=== PATIENT | male | born 1980 | race Caucasian/White ===

== ENCOUNTER 2019-11-27 19:34 | Emergency (ER) | payer BC ==
[~2019-11-27] VITALS: Ht 170.2 cm; Wt 91.0 kg
[2019-11-27 19:35] VITALS: BP 163/83
--- NOTE | 2019-11-27 19:57 | PHYS DOC ---
Adult General Chief Complaint Chief Complaint: OVERDOSE HPI HPI Patient is a 39-year-old male who presents after accidentally overdose on drugs. EMS reports that call went out for cardiac arrest and when they arrived, patient was with agonal respirations and was receiving CPR. EMS indicates that they had given intranasal Narcan 2 mg per nostril and patient came around and has been alert and oriented since. EMS states the patient did not want to come to the emergency room but they convinced him. Upon arrival, patient stating that he wants to leave AGAINST MEDICAL ADVICE. Patient has demonstrated that he is oriented 3. Patient denies any suicidal or homicidal ideations. Patient states that he thinks that the drug intake and was possibly laced with fentanyl or carfentanyl.[] Review of Systems Review of Systems Constitutional: Denies fever or chills [] Respiratory: Denies cough or shortness of breath [] Cardiovascular: No additional information not addressed in HPI [] GI: Denies abdominal pain, nausea, vomiting or diarrhea [] Integument: Denies rash or skin lesions [] Neurologic: Denies headache, focal weakness or sensory changes [] Allergies Allergies Allergies Coded Allergies Type Severity Reaction Last Updated Verified No Known Drug Allergies 11/27/19 No Physical Exam Physical Exam Constitutional: Well developed, well nourished, no acute distress, non-toxic appearance. [] Eyes: PERRLA, EOMI, conjunctiva normal, no discharge. [] Neck: Normal range of motion, no tenderness, supple. [] Cardiovascular: Regular rate and rhythm[] Lungs & Thorax: Bilateral breath sounds clear to auscultation [] Abdomen: Bowel sounds normal, soft, no tenderness. [] Skin: Warm, dry, no erythema, no rash. [] Neurologic: Alert and oriented X 3, no focal deficits noted. [] Psychologic: Affect normal, mood normal. [] Current Patient Data Vital Signs Vital Signs Date Time Temp Pulse Resp B/P (MAP) Pulse Ox O2 Delivery O2 Flow Rate FiO2 11/27/19 19:35 98.8 115 20 163/83 (109) 96 Room Air 98.8 EKG EKG [] Radiology/Procedures Radiology/Procedures [] Course & Med Decision Making Course & Med Decision Making Pertinent Labs and Imaging studies reviewed. (See chart for details) [] Dragon Disclaimer Dragon Disclaimer This electronic medical record was generated, in whole or in part, using a voice recognition dictation system. Departure Departure Impression: Primary Impression: Accidental overdose Disposition: 07 AGAINST MEDICAL ADVICE Condition: GOOD Problem Qualifiers Primary Impression: Accidental overdose Encounter type: initial encounter Qualified Codes: T50.901A - Poisoning by unspecified drugs, medicaments and biological substances, accidental (unintentional), initial encounter JACQUI YI Jr. DO Nov 27, 2019 19:57
== END 2019-11-27 19:50 | disposition left against medical advice (07) ==
LOC: ER 19:34
DX: T50.901A Poisoning by unspecified drugs, medicaments and biological substances, accidental (unintentional), initial encounter (principal); Y92.89 Other specified places as the place of occurrence of the external cause
CPT/HCPCS: 99283